=== PATIENT | female | born 1960 | race Caucasian/White ===

== ENCOUNTER 2017-12-18 04:30 | Emergency (ER) | payer OTHER ==
[~2017-12-18] VITALS: Ht 154.9 cm; Wt 60.2 kg
[2017-12-18] MEDS ORDERED: PERCOCET 5/31 TABLET PO (06:06)
[2017-12-18] MEDS ORDERED: LIDODERM 5% P1 PATCH TD (06:06)
[2017-12-18 06:37] VITALS: BP 136/87
== END 2017-12-18 06:37 | disposition home or self-care (01) ==
LOC: EME 04:30
DX: S22.42XA Multiple fractures of ribs, left side, initial encounter for closed fracture (principal); J90 Pleural effusion, not elsewhere classified; W19.XXXA Unspecified fall, initial encounter
CPT/HCPCS: 71250; 99281; 99283; J2270; J3010